=== PATIENT | female | born 1985 ===

== ENCOUNTER 2016-10-14 22:54 | Emergency (ER) | payer MEDICAID ==
[2016-10-15] MEDS ORDERED: TYLENOL #3 PO ONE (04:07)
--- NOTE | 2016-10-15 04:11 | Emergency Department Report ---
HPI - General Chief Complaint: Upper Respiratory Infection Time Seen by Provider: 10/15/16 03:36 - HPI HPI: Patient is a 31-year-old female presents to the ED complaining of fever, sore throat and generalized muscle pain for the past 5 days. Patient states she thinks she had the flu and is feeling of the better but still has some slight throat pain as well as nonproductive dry cough past 2 days. Patient also admits some mild sore throat that is resolving.. She denies fever assess to this nausea/vomiting/abdominal pain/diarrhea or any other problems ED Past Medical Hx - Past Medical History Previous Medical History?: No - Surgical History Past Surgical History?: No - Social History Smoking Status: Never Smoker Substance Use Type: None - Medications Home Medications: Home Medications Medication Instructions Recorded Confirmed Last Taken Type Cetirizine HCl [ZyrTEC] 10 mg PO DAILY #30 capsule 10/15/16 Unknown Rx Promethazine /Codeine 5 ml PO Q6H PRN #80 ml 10/15/16 Unknown Rx [Phenergan/Codeine 6.25-10 mg/5Ml] ED Review of Systems ROS: Stated complaint: FEVER, SORE THROAT, MUSCLE PAIN Other details as noted in HPI Constitutional: denies: chills, fever Eyes: denies: eye pain, eye discharge, vision change ENT: denies: ear pain, throat pain Respiratory: denies: cough, shortness of breath, wheezing Cardiovascular: denies: chest pain, palpitations Endocrine: no symptoms reported Gastrointestinal: denies: abdominal pain, nausea, diarrhea Genitourinary: denies: urgency, dysuria, discharge Musculoskeletal: denies: back pain, joint swelling, arthralgia Skin: denies: rash, lesions Neurological: denies: headache, weakness, paresthesias Psychiatric: denies: anxiety, depression Hematological/Lymphatic: denies: easy bleeding, easy bruising Physical Exam - Physical Exam Vital Signs: Vital Signs 10/14/16 10/15/16 23:02 00:21 Temperature 101.1 F H 101.1 F H Pulse Rate 105 H 105 H Respiratory 22 22 Rate Blood Pressure 116/79 Blood Pressure 116/79 [Right] O2 Sat by Pulse 97 97 Oximetry Physical Exam: GENERAL: Alert and oriented x3, no apparent distress, Normal Gait, atraumatic. HEAD: Head is normocephalic and a-traumatic. EYES: Extra ocular muscles are intact. Pupils are equal, round, and reactive to light and accommodation. EARS: symetrical, atraumatic, non tender, ear canal clear and moderate cerumen, tympanic membrance non inflamed. gross auditory nml bilaterally. NOSE: Nose symetrical, Nontender,Nares appeared normal. MOUTH:Mouth is well hydrated and without lesions. Tonsils nonerythematous or swollen, Uvula midline, Tongue not elevated. Mucous membranes are moist. Posterior pharynx clear, no exudate or lesions. Patent airways. NECK: Supple. Non edematous,No lymphadenopathy or thyromegaly. LUNGS: Symetrical with respiration, No wheezing, no rales or crackles, CTAB. HEART: S1, S2 present, regular rate and rhythm without murmur, no rubs, no gallops. Non tender to palpation ABDOMEN: No organomegaly was noted,Positive bowel sounds, soft, and non- distended. Nontender to palpation on all Quadrants, NO CVA tenderness. SKIN: Warm and dry, No lesions, No ulceration or induration present. ED Course Vital Signs 10/14/16 10/15/16 23:02 00:21 Temperature 101.1 F H 101.1 F H Pulse Rate 105 H 105 H Respiratory 22 22 Rate Blood Pressure 116/79 Blood Pressure 116/79 [Right] O2 Sat by Pulse 97 97 Oximetry ED Medical Decision Making - Medical Decision Making 31-year-old female presents with upper respiratory infection ED course: Rapid strep test obtained Rapid strep test negative Discussed this with the patient to make sure she keeps hydrated, eat appropriately, and take Motrin as needed for fever and pain Vital signs are normal patient is not in any acute distress. Discussed home medications and to take as prescribed. Discussed patient in follow-up department physician Discussed any worsening symptoms or new symptoms to return to ED she is alert and oriented 3 shortness of instructions given. Critical care attestation.: If time is entered above; I have spent that time in minutes in the direct care of this critically ill patient, excluding procedure time. ED Disposition Clinical Impression: URI with cough and congestion Disposition: DC-01 TO HOME OR SELFCARE Is pt being admited?: No Does the pt Need Aspirin: No Condition: Stable Instructions: Upper Respiratory Infection (ED), Acute Bronchitis (ED) Prescriptions: Cetirizine HCl [ZyrTEC] 10 mg PO DAILY #30 capsule Promethazine /Codeine [Phenergan/Codeine 6.25-10 mg/5Ml] 5 ml PO Q6H PRN #80 ml PRN Reason: cough Referrals: [facility] [place] [Outside] - 3-5 Days [facility] [Outside] - 3-5 Days [facility] [Outside] - 3-5 Days Forms: Accompanied Note, Work/School Release Form(ED) Time of Disposition: 04:16
[2016-10-15 05:16] VITALS: BP 119/87
== END 2016-10-15 05:16 | disposition home or self-care (01) ==
LOC: ED 22:54
DX: J06.9 Acute upper respiratory infection, unspecified (principal)
CPT/HCPCS: 87116; 87430; 99283